=== PATIENT | male | born 1975 | race Caucasian/White ===

== ENCOUNTER 2019-07-22 08:46 | Emergency (ER) | payer OTHER ==
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
[2019-07-22] MEDS ORDERED: Ketorolac 30 MG/ML SDV IVPUSH ONE (09:12)
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
[2019-07-22 09:20] VITALS: BP 169/116; PULSE 108
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
[2019-07-22 09:22] LABS: BLOOD UREA NITROGEN,BUN 14 mg/dL (7.0-18.0); CARBON DIOXIDE,CO2 26.7 mmol/L (21.0-32.0); CHLORIDE,CL 103 mmol/L (98-107); GLUCOSE RANDOM 120 mg/dL (74-106); LIPASE 62 U/L (73-393); POTASSIUM,K 3.9 mmol/L (3.5-5.1); SODIUM,NA 139 mmol/L (136-148)
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
[2019-07-22] MEDS: Diphtheria,Pertussis(Acell),Tetanus Vaccine 0.5 ML Syringe IM ONE (09:32)
[2019-07-22] MEDS: Lidocaine 1% with EPINEPHrine 1:100,000 20 ML MDV INJECT ONE (09:32)
[2019-07-22] MEDS: Bupivacaine 0.5% 10 ML SDV INJECT ONE (09:32)
[2019-07-22] MEDS: Sodium Chloride 0.9% 2.5 ML Syringe FLUSH PRN (09:33)
[2019-07-22] MEDS: Sodium Chloride 0.9% 10 ML Syringe FLUSH PRN (09:33)
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
[2019-07-22] MEDS: Acetaminophen 500 MG Tab PO ONE (10:35)
[2019-07-22] MEDS: cloNIDine 0.1 MG Tab PO ONE (10:46)
== END 2019-07-22 10:49 | disposition home or self-care (01) ==
LOC: MW.ED 08:46
DX: S01.01XA Laceration without foreign body of scalp, initial encounter (principal); S76.311A Strain of muscle, fascia and tendon of the posterior muscle group at thigh level, right thigh, initial encounter; Z23 Encounter for immunization; V29.9XXA Motorcycle rider (driver) (passenger) injured in unspecified traffic accident, initial encounter
CPT/HCPCS: 36415; 70450; 70450-26; 71045; 71045-26; 72125; 72125-26; 72170; 72170-26; 73562-26-LT; 73562-LT; 80053; 83690; 85025; 90471; 90715; 99284-25; A9270-GY; G0480; J3490